=== PATIENT | male | born 1945 | race Caucasian/White ===

== ENCOUNTER → 2021-04-22 09:24 | Outpatient (CLI) | payer MEDICARE, SELFPAY ==
--- NOTE | ~2021-04-22 | MR_ITS ---
EXAMINATION: MR shoulder LT wo con DATE: 04/22/2021 10:45 INDICATION: Left shoulder pain TECHNIQUE: Magnetic resonance imaging (MRI) of the left shoulder was performed without intravenous co ntrast. Sequences included axial PD-weighted FS FSE, coronal oblique PD-weighted FS FSE, coronal obli que T2-weighted FS FSE, sagittal PD-weighted FS FSE, and sagittal T1-weighted SE. COMPARISON: Left shoulder radiographs dated 04/13/2021 FINDINGS: Coracoacromial arch: The acromion undersurface is minimally curved in morphology (type I-II). The coracoacromial ligament is normal. Mild to moderate acromioclavicular osteoarthritis with tiny degenerative subchondral cysts and small inferiorly directed osteophyte at the lateral head of the clavicle. Rotator cuff: Mild supraspinatus and infraspinatus tendinopathy. There is attenuation of the distal 2 cm the supras pinatus tendon with partial-thickness articular sided tear involving approximately one third to one h miladis of the tendon thickness. There is also mild bursal sided fraying along both supraspinatus and inf raspinatus tendons. There appears to be a small full-thickness component to the tears measuring 3 mm AP, 8 mm medial to lateral along the midportion of the superior facet footplate of the supraspinatus tendon. Mild subscapularis tendinopathy with partial tear beginning along the lateral rim of the infe rior aspect of the lesser tuberosity footplate and extending progressively medial and cephalad across the lesser tuberosity. The bursal most fibers of the cephalad aspect of the tendon remains intact an d contiguous with the intact transverse humeral ligament. The inferior muscular attachment of the sub scapularis also remains intact. The teres minor tendon is normal. Mild atrophy of the supraspinatus w ith concave cephalad margin of the muscle belly at the supraspinatus fossa. There is also mild to mod erate atrophy of the subscapularis muscle belly. Biceps tendon, glenoid labrum and glenohumeral cartilage: The long head of the biceps tendon is subluxed across the medial rim of the intertubercular groove an d the subscapularis tendon tear defect at the lesser tuberosity. Tendinopathy, longitudinal split tea ring of the long head biceps tendon with likely partial thickness tear at the junction of the intra-a rticular portion of the tendon is subluxed across the lesser tuberosity. Tear of the 12:00-10:30 posi tion of the posterior superior glenoid labrum Glenohumeral cartilage is normal. Fluid: Small glenohumeral joint effusion with mild synovitis at the axillary recess and with proportional sm all amount of fluid extending into the long head biceps tendon sheath at the empty intertubercular gr oove. No loose osteochondral bodies. Small amount of fluid in the subacromial/subdeltoid bursa which could be due to bursitis and/or decompression of the joint effusion through the small full-thickness rotator cuff tear. Bones: Bone alignment is normal. No fracture or pathologic marrow replacing process. IMPRESSION: 1. Mild supraspinatus and infraspinatus tendinopathy with partial-thickness articular sided supraspin atus tendon tear, more extensive shallow bursal sided fraying of both tendons and small full-thicknes s perforation at the distal supraspinatus tendon. 2. Mild tendinopathy and partial tear involving the superolateral half of the lesser tuberosity footp late. 3. Mild tendinopathy, longitudinal split tear and likely partial-thickness tear of the long head juve ps tendon which is subluxed across the subscapularis tear defect. 4. Tear of the posterior superior glenoid labrum. 5. Mild to moderate acromioclavicular osteoarthritis. Reviewed, dictated and finalized at location A.
== END ==
PROVIDERS: PCP Orthopaedic Surgery; Visit Provider Orthopaedic Surgery
DX: M75.82 Other shoulder lesions, left shoulder (principal); S46.212A Strain of muscle, fascia and tendon of other parts of biceps, left arm, initial encounter; S43.52XA Sprain of left acromioclavicular joint, initial encounter; M19.012 Primary osteoarthritis, left shoulder
CPT/HCPCS: 73221

== ENCOUNTER 2021-06-17 00:43 | Day surgery (SDC) | payer MEDICARE, SELFPAY ==
[2021-06-15 14:06] VITALS: BMI 28.0
--- NOTE | 2021-06-16 14:18 | WPDANESEPPF ---
Anes - Initial Pre Proc Eval Procedure: Operation Date: 06/17/21 07:30 Proposed Procedures p Left Arthroscopic Rotator Cuff Repair, Biceps Tenodesis Subacromial Decompression - Crispin Mejia MD Date/Time: 06/16/21 14:18 Surgeon: Crispin Mejia MD Pre Op Diagnosis: Complete Left Rotator Cuff Tear Patient Data Age: 76 Gender: M Height: 1.75 m Weight: 86.36 kg Allergies Allergy/AdvReac Type Severity Reaction Status Date / Time No Known Allergies Allergy Verified 06/17/21 06:28 Home Medications Medication Instructions Recorded Confirmed Type lisinopril 5 mg tablet 5 mg PO DAILY 03/01/21 06/17/21 History aspirin 81 mg PO DAILY 06/15/21 06/17/21 History Patient hx anesthesia problems: post op nausea/vomiting (only with cataract surgery) Family hx anesthesia problems: none Results Review: All pre-operative results and documents have been reviewed as part of the pre-operative evaluation. FOR[facility]LY [facility] Past Medical History Medical History (Updated 06/16/21 @ 14:19 by Glen Faria DO) Essential hypertension PONV (postoperative nausea and vomiting) Surgical History Surgical History History of appendectomy (~1964) History of cataract extraction (~2003) History of right knee surgery (~1969) Social History Social History Smoking status: Never smoker Second hand tobacco smoke exposure: No Alcohol intake: never Substance use: never Substance use type: does not use Living arrangements: with family Spiritual care concerns: No Anes - Eval Final PreProcedure Day of Procedure 06/16/21 14:18 Patient weight: overweight Heart: regular rate and rhythm Lungs: clear to auscultation and normal air movement Airway: Mallampati scale class II Neurological: alert and oriented Last oral intake: >/= 8 hours ASA classification: II Emergent: no Anesthetic plan: proceed Anesthesia type and monitoring: general ETT and standard monitoring Results Review: All pre-operative results and documents have been reviewed as part of the pre-operative evaluation. Informed Consent: The patient's anesthetic plan and its attendant risks and benefits were discussed with the patient/family/POA. Questions were solicited and answers provided to the satisfaction of the patient/family/POA.
--- NOTE | 2021-06-16 14:21 | WPDANESPNB ---
Anes - Peripheral Nerve Block Date/Time: 06/16/21 14:21 I have discussed with the patient/family/POA the placement of a peripheral nerve block for post-operative pain management, including associated risks, benefits, complications, and side effects. Alternative methods of post-operative analgesia were detailed. Questions were solicited and answers provided to the satisfaction of the patient/family/POA. Time-Out: A pre-procedural Time-Out was completed immediately before starting the procedure and confirmed: Patient Identification, Site, Procedure, Patient Position and the Availability of Requisite Equipment. Clinical Indications: Acute post-operative pain management requested by the operative surgeon. Nerve Block Insertion Note Anes-nerve block: interscalene Patient position: supine Skin prep: chlorhexidine Needle: 22 gauge, stimulating, insulated echogenic needle. Needle length: 50 mm Technique: ultrasound Injectate: bupivacaine 0.5% with epi 5 mcg/ml (30cc- no epi) Observations: tolerated well Complications: none
[2021-06-17] VITALS (8 sets, daily range): BP systolic 127–153; BP diastolic 65–83; PULSE 66–80; RESP 13–18; TEMP 36.1–36.2; O2SAT 96–100
--- NOTE | 2021-06-17 05:55 | ECG_ITS ---
Measurements Intervals [place] Rate: 59 P: -19 OR: 170 QRS: -13 QRSD: 110 T: 30 QT: 422 QTc: 420 Interpretive Statements SINUS BRADYCARDIA VOLTAGE CRITERIA FOR LVH BORDERLINE ECG Electronically Signed On 06-17-2021 8:16:59 CDT by Alexys Abbasi D.O.
[2021-06-17] MEDS: ACETAMINOPHEN 500 MG TABLET 1000 MG PO (06:37)
--- NOTE | 2021-06-17 06:38 | WPDANESPNB ---
Anes - Peripheral Nerve Block Date/Time: 06/17/21 06:38 I have discussed with the patient/family/POA the placement of a peripheral nerve block for post-operative pain management, including associated risks, benefits, complications, and side effects. Alternative methods of post-operative analgesia were detailed. Questions were solicited and answers provided to the satisfaction of the patient/family/POA. Time-Out: A pre-procedural Time-Out was completed immediately before starting the procedure and confirmed: Patient Identification, Site, Procedure, Patient Position and the Availability of Requisite Equipment. Clinical Indications: Acute post-operative pain management requested by the operative surgeon. Nerve Block Insertion Note Anes-nerve block: interscalene left Patient position: supine Skin prep: chlorhexidine Needle: 22 gauge, stimulating, insulated echogenic needle. Needle length: 50 mm Technique: ultrasound Injectate: bupivacaine 0.5% with epi 5 mcg/ml (30cc- no epi) Observations: tolerated well Complications: none Procedure start time:: 716 Procedure end time:: 720
[2021-06-17] MEDS: LACTATED RINGERS 1,000 ML 30 ML IV CONT ×2 (06:46→10:07)
[2021-06-17] MEDS: KETOROLAC 15 MG/ML VIAL (*BKC) IV PUSH (06:47)
--- NOTE | 2021-06-17 07:14 | WPDHPUPDATE1 ---
History and Physical Update Update Date/Time: 06/17/21 07:14 History and Physical has been reviewed, including an updated exam of the patient. There are NO changes in the patient's condition. Risks, benefits, and alternatives have been discussed and questions answered. Patient agrees to proceed with procedure.
[2021-06-17] MEDS: ceFAZolin 2 GM/D5W 50 ML 2 GM/50 ML BAG IVPB (07:29)
[2021-06-17] MEDS: oxyCODONE HCL (*CRX) 5 MG TAB IR PO (11:59)
--- NOTE | 2021-06-17 12:48 | P.OP_ITS ---
Procedure Note - Detailed Date of Procedure 06/17/21 Pre-op Diagnosis Complete Left Rotator Cuff Tear Post-op Diagnosis other (1. Left rotator cuff tear 2. Biceps tendinosis 3. Subacromial impingement) Procedure Performed 1. Arthroscopic rotator cuff repair 2. Arthroscopic subacromial decompression 3. Arthroscopic biceps tenodesis Surgeon Crispin Mejia MD Plant Operator Helper Mariza Chadwick PA-C Anesthesia general and regional ( interscalene block) Findings Large supraspinatus tear with articular degeneration. Upper partial thickness subscapularis tear. Extensive tendinoisis and flatening of the biceps tendon. Repair of subscapularis and biceps tenodesis with suture anchor. 2 bone tunnel repair of the supraspinatus. Description of Procedure Preoperative antibiotics were given. An interscalene block was administered in the preoperative area. The patient was bought brought to the operating room. A general anesthetic was administered. The patient was carefully positioned in the beach chair position. The head and neck were carefully positioned. The non operative extremity was also carefully positioned. The shoulder was prepped and draped in the usual sterile fashion. Examination was performed. Standard posterior and anterior arthroscopic portals were established. Inflow achieved with the arthroscopic pump using saline and epinephrine. The glenohumeral joint was carefully inspected. Extensive tearing of the biceps and superior labral area was immediately noted. Also full-thickness tear of the supraspinatus with mild retraction and significant partial-thickness delamination of the undersurface of the cuff. Otherwise the tissue was of reasonable quality. The biceps was very flattened. It was tagged and released for tenodesis. The subscapularis was partially torn. There was a comma sign with continuity of the rotator cuff cable. Reduction of the upper subscapularis improve the anatomy of the cable and the supraspinatus tear became less retracted. An Arthrex knotless anchor was used to tie a locking loop suture from the subscapularis and the biceps at the upper lateral lesser tuberosity. Repair appeared quite anatomic at the subscapularis and the biceps was nicely tenodesed. Of note, minimal superior chondromalacia of the humeral head was noted. The glenohumeral cartilage was otherwise normal. Attention was turned to the subacromial space. The bursa was thickened. A complete bursectomy was performed. The rotator cuff and footprint were lightly debrided. A modest acromioplasty was performed. The tear configuration was carefully assessed. At this point, 2 tunnels were created at the rotator cuff. The ArthroTunneler technique was utilized. Three sutures were passed through each tunnel. All sutures were then passed through the cuff tissue. The sutures were tied art hroscopically with a rip stop configuration. The arthroscopic instruments were removed. The wounds were closed with 3-0 Monocryl subcuticular suture and steri strips. There were no complications. A sling was applied and the patient brought to the recovery room. Physician radiology practitioner assistant, Mariza Chadwick PA-C, required for surgery; including patient positioning, draping, arthroscopic camera operation, maintaining instrument position, suture retrieval, wound closure, and dressing and sling placement. Implants Arthrex SwiveLock anchor. Multiple suture tapes. Estimated Blood Loss -10.0 Pathology none sent Complications No immediate complications Condition stable Disposition PACU
== END 2021-06-17 12:40 | disposition home or self-care (01) ==
PROVIDERS: PCP Emergency Medicine; Visit Provider Orthopaedic Surgery
PROC: (CPT 29805; principal; 2021-06-17 07:30)
DX: M75.122 Complete rotator cuff tear or rupture of left shoulder, not specified as traumatic (principal); M67.88 Other specified disorders of synovium and tendon, other site; M75.42 Impingement syndrome of left shoulder; G89.18 Other acute postprocedural pain; I10 Essential (primary) hypertension; E66.3 Overweight; Z68.28 Body mass index [BMI] 28.0-28.9, adult
CPT/HCPCS: 29827; 29828; 29826; 64415; 93005; A4565; A9270; J0330; J0690; J1100; J1885; J2250; J2370; J2405; J2704; J3010; J7120

== ENCOUNTER 2024-12-29 13:17 | Outpatient (CLI) | payer MEDICARE, SELFPAY ==
--- NOTE | ~2024-12-29 | MR_ITS ---
EXAMINATION: MR shoulder RT wo con DATE: 12/29/2024 13:57 INDICATION: M25.811 - Other specified joint disorders, right shoulder . TECHNIQUE: Magnetic resonance imaging (MRI) of the right shoulder was performed without intravenous c ontrast. Sequences included axial PD-weighted FS FSE, coronal oblique PD-weighted FS FSE and T2-weigh michelle FS FSE, and sagittal oblique T2-weighted FS FSE and T1-weighted FSE. COMPARISON: None. FINDINGS: Coracoacromial arch: Mild lateral downsloping of the type I acromion. Mild subacromial narrowing. No subcoracoid narrowing . Mild acromial tip enthesopathy. Moderate inferior osteophytosis off the AC joint. Rotator cuff: 6 mm full-thickness superior cuff tear, predominantly involving fibers of the supraspinatus, no signi ficant retraction. Mild supraspinatus atrophy. Abnormal T2 hyperintensity within and deep to the ante rior fibers of the infraspinatus muscle along its length. Mild thickening and signal abnormality in t he distal aspect of the subscapularis tendon. A small slip of linear abnormal signal is noted in a po rtion of the upper subscapularis musculotendinous junction. Terrace minor is intact. Abnormal signal and thickening in the distal aspect of the superior cuff tendons, likely due to tendinopathy. Biceps tendon and glenoid labrum: Mild abnormal signal within the long head of biceps tendon. Degenerative changes in the glenoid labru m without tear. Fluid: Mild subacromial/subdeltoid and glenohumeral joint fluid. Bones/cartilage: Moderate degenerative change at the AC joint. Mild thickening of the inferior capsule. Mild obscurati on of the subcoracoid fat. IMPRESSION: 6 mm full-thickness supraspinatus tear, with mild atrophy. Small intrasubstance tear of the subscapularis at the musculotendinous junction, and a background of tendinopathy. Abnormal T2 hyperintensity within and deep to the infraspinatus, may reflect muscle strain. Mild long head of biceps tendinopathy. Possible mild/early capsulitis. Reviewed, dictated and finalized at location K. IMPRESSION: 6 mm full-thickness supraspinatus tear, with mild atrophy. Small intrasubstance tear of the subscapularis at the musculotendinous junction , and a background of tendinopathy. Abnormal T2 hyperintensity within and deep to the infraspinatus, may reflect mu scle strain. Mild long head of biceps tendinopathy. Possible mild/early capsulitis.
== END 2024-12-29 13:18 | disposition home or self-care (01) ==
LOC: MICIMG 13:19
PROVIDERS: PCP Emergency Medicine; Visit Provider Physician Assistant Surgical
DX: M25.811 Other specified joint disorders, right shoulder (principal)
CPT/HCPCS: 73221

== ENCOUNTER 2025-05-13 10:06 | Outpatient (CLI) | payer MEDICARE, SELFPAY ==
--- OUTSIDE RECORDS SUMMARY | 2025-05-12 03:45 | XMS_ITS ---
Author Organization [facility] Address [address] [place] [address] Care Team Providers Care Disability Attorney Name Role Phone Dr. Silvia Su Primary Care Provider [phone] Allergies No Known Allergies REASON FOR VISIT discuss medications for tremors. Medications Medication SIG (Take, Route, Frequency, Duration) Notes Start Date End Date Status Rosuvastatin Calcium 20 MG Tablet 1 tablet Orally Once a day Active Baby Aspirin Active Rosuvastatin Calcium 20 MG Tablet 1 tablet Orally Once a day; Duration: 90 days 04/29/2025 Active Lisinopril 5 MG Tablet 1 tablets Orally Once a day; Duration: 90 days 04/29/2025 Active Tylenol 8 Hour 650 MG Tablet Extended Release 2 tablets as needed Orally every 8 hrs Active Lisinopril 5 MG Tablet 1 tablet Orally O nce a day 04/29/2025 Active Meloxicam 15 MG Tablet 1 tablet Orally O nce a day; Duration: 30 days 04/29/2025 Active Propranolol HCl 20 MG Tablet 1 tablet on an empty stomach Orally every 12 hrs; Duration: 30 days 05/12/2025 Active Social History Tobacco Use: Social History Observation Description Date Details (start date - stop date) Never Smoker NA - NA Social History Household: Social Info Question Answer Notes Household Marital status: Tobacco Use: Social Info Question Answer Notes Tobacco Control (Standard) Tobacco use: Nonsmoker Additional Details Category Social Info Options Details Drug/Alcohol: Do you drink alcohol? No Problems Problem Type SNOMED Code ICD Code Onset Dates Problem Status W/U Status Risk Notes Problem Chronic kidney disease stage 2 (110862700) Chronic kidney disease, stage 2, mildly decreased GFR (N18.2) Active confirmed Problem Tremor (01515899) Tremor (R25.1) Active confirmed Vital Signs Temperature 97.4 degrees Fahrenheit 05/12/20 25 Blood pressure systolic 112 mm Hg 05/12/20 25 Blood pressure diastolic 68 mm Hg 025 Heart Rate 76 /min 05/12/2025 Respiratory Rate 16 /min 05/12/2025 Height 70 in 05/12/2025 Weight 199 lbs 05/12/2025 BMI 28.55 kg/m2 05/12/2025 Oximetry 95 % 05/12/2025 Height-cm 177.8 cm 05/12/2025 Weight-kg 90.27 kg 05/12/2025 Encounters Encounter Location Date Provider Diagnosis [address] [address] 05/12/2025 Dr. Silvia Su Tremor R25.1 ; Nummular eczema L30.0 and CKD (chronic kidney disease) stage 2, GFR 60-89 ml/min N18.2 Assessments Encounter Date Diagnosis (ICD Code) Assessment Notes Treatment Notes Treatment Clinical Notes Section Notes 05/12/2025 Tremor (ICD-10 - R25.1) Essential tremor:- Essential tremor, no contraindications to beta mariaelena therapy. Propranolol selected as initial treatment due to favorable side effect profile.- Prescribed propranolol, to be initiated after shoulder surgery on May 25, 2025. Start at low dose, titrate as needed based on response. Follow-up scheduled for July 2025 to assess efficacy and tolerability. Advised to contact sooner if significant side effects occur.- Risks and side effects: Discussed possible side effects including exercise intolerance and fatigue due to heart rate reduction. Patient consented to plan after discussion of risks. 05/12/2025 Nummular eczema (ICD-10 - L30.0) Nummular eczema vs. tinea (ringworm) on lower extremity: - Dry, non-pruritic patch on lower extremity consistent with nummular eczema; tinea corporis considered in differential diagnosis. - Recommended hreq-zgh-jjoaayx hydrocortisone 1% cream, apply twice daily and keep area moisturized. If no improvement or lesion enlarges, consider escalation to stronger topical steroid or topical antifungal. Monitor for new lesions or pruritus. 05/12/2025 CKD (chronic kidney disease) stage 2, GFR 60-89 ml/min (ICD-10 - N18.2) Chronic kidney disease, mild: - Mild chronic kidney disease, stable GFR (75-76). No acute intervention required. Meloxicam identified as possible contributor to renal impairment. - Plan to discontinue meloxicam after shoulder surgery. Will monitor kidney function. Urine microalbumin test deferred to next visit in July 2025. Advised to maintain blood pressure and blood glucose control. [facility]. Plan Of Treatment Medication Medication Name Sig Start Date Stop Date Notes Propranolol HCl 20 MG Tablet 1 tablet on an empty stomach Orally every 12 hrs; Duration: 30 days 05/12/2025 Treatment Notes Assessment Notes Tremor Essential tremor:- E ssential tremor, no contraindications to beta mariaelena therapy. Propranolol selected as initial treatment due to favorable side effect profile.- Prescribed propranolol, to be initiated after shoulder surgery on May 25, 2025. Start at low dose, titrate as needed based on response. Follow-up scheduled for July 2025 to assess efficacy and tolerability. Advised to contact sooner if significant side effects occur.- Risks and side effects: Discussed possible side effects including exercise intolerance and fatigue due to heart rate reduction. Patient consented to plan after discussion of risks. Nummular eczema Nummular eczema vs. tinea (ringworm) on lower extremity: - Dry, non-pruritic patch on lower extremity consistent with nummular eczema; tinea corporis considered in differential diagnosis. - Recommended fthw-ubs-ihhsipq hydrocortisone 1% cream, apply twice daily and keep area moisturized. If no improvement or lesion enlarges, consider escalation to stronger topical steroid or topical antifungal. Monitor for new lesions or pruritus. CKD (chronic kidney disease) stage 2, GFR 60-89 ml/min Chronic kidney disease, mild: - Mild chronic kidney disease, stable GFR (75-76). No acute intervention required. Meloxicam identified as possible contributor to renal impairment. - Plan to discontinue meloxicam after shoulder surgery. Will monitor kidney function. Urine microalbumin test deferred to next visit in July 2025. Advised to maintain blood pressure and blood glucose control. Will review results from [facility]. Next Appt Details Follow Up: 3 Months, Reason: Provider Name:Dr. iSlvia Hair, 08/05/2025 08:45:00 AM, [address] [place], [address], [phone] History and Physical Notes * HPI (History of Present Illness) Category Sub-Category Detail Notes Category Not es HPI Patient is a 76 year old male with a PMhx of HTN, HLD presenting to the clinic to discuss tremors. He reports hand tremors that have been present for at least 3 years, previously evaluated for Parkinson's due to Agent Newberry exposure in [place]; Parkinson's was ruled out. Underwent EMG and nerve testing, which was negative. Declines any brain MRI done at that time. He was diagnosed with essential tremor. Tremor occurs with action, such as picking up a glass, eating, and playing golf, but resolves once movement begins. No tremor at rest. No family history of Parkinson's, essential tremor. Patient is interested in starting treatment but expresses concern about potential drowsiness from medication. Patient is scheduled for shoulder arthroplasty on 05/[address] Gates. He would like to wait to start the new medication until that time. Denies history of heart rate issues or congestive heart failure. Remains physically active, including mowing the yard. Describes a skin lesion on the leg present for approximately one month, not itchy, not growing. Has used medicated salve on the lesion without improvement. Expresses concern about kidney function after being informed by nurse about GFR results, with values of 76 in January and 75 on recent labs. Uses meloxicam and intends to discontinue after shoulder replacement surgery. Examination Category Sub-Category Detail Notes Category Not es General Examination I have reviewed vital signs. Constitution: Awake and alert. No acute distress. Well nourished HEENT: Normocephalic and atraumatic. Conjunctivae clear. EOM intact. PERRLA. Cardiac: Regular rate and rhythm. No murmurs, rubs, or gallops. Respiratory: Lungs clear to auscultation bilaterally. No rales, rhonchi, or wheezes. No signs of respiratory distress. Abdominal: Abdomen is soft and non-tender without distention. No rebound or guarding. Bowel sounds are present and normoactive. Neurologic Exam: Mental status: Patient is alert and oriented to person, place, and time. Speech is clear. No focal deficits. Cranial Nerves: grossly intact. Motor: Good muscle tone. No tremor at rest, tremor with purposeful movements. SKin: there is a circular, erythematous, scaly lesion to the posterior right foot over the Achilles insertion point. No drainage, non-tender. Psychiatric: appropriate mood and affect. Progress Notes * Ananth CARLINDOB:1945 ( 79 yo M)Acc No.[id number]:05/12/2025 Patient: Ananth Zee Provider: Bonny Su MD :1945 A ge:79 Y S ex:Male Date:05/12/2025 Phone: Address:[address] [place], [place] [id number] Subjective: * Chief Complaints: * D iscuss medications for tremors. * HPI: H PI: Patient is a 76 year old male with a PMhx of HTN, HLD p resenting to the clinic to discuss tremors. He reports hand tremors that have been present for at least 3 years, previously evaluated for Parkinson's due to Agent [place] exposure in [place]; Parkinson's was ruled out. Underwent EMG and nerve testing, which was negative. D eclines any brain MRI done at that time. He was diagnosed with essential tremor. T remor occurs with action, such as picking up a glass, eating, and playing golf, but resolves once movement begins. No tremor at rest. No family history of Parkinson's, essential tremor. Patient is interested in starting treatment but expresses concern about potential drowsiness from medication. Patient is scheduled for shoulder arthroplasty on 05/[address] Gates. He would like to wait to start the new medication until that time. D enies history of heart rate issues or congestive heart failure. Remains physically active, including mowing the yard. Describes a skin lesion on the leg present for approximately one month, not itchy, not growing. Has used medicated salve on the lesion without improvement. Expresses concern about kidney function after being informed by nurse about GFR results, with values of 76 in January and 75 on recent labs. Uses meloxicam and intends to discontinue after shoulder replacement surgery. * ROS: S ee HPI. * Surgical History: appendectomy 03/1965 right knee surgery 10/1969 cataract surgery - both eyes 2002 left rotator cuff 05/2021 Surgical History verified. * Family History: M other: heart issues, cancer. 2 son(s) . . F amily History Verified.. * Social History: T obacco Use: T obacco Control (Standard) T obacco use: N onsmoker D rug/Alcohol: D o you drink alcohol?: No. H ousehold: H ousehold M arital status: m arried S ocial History Verified. * Medications: T akingTylenol 8 Hour 650 MG Tablet Extended Release 2 tablets as needed Orally every 8 hrs Baby Aspirin Rosuvastatin Calcium 20 MG Tablet 1 tablet Orally Once a day Lisinopril 5 MG Tablet 1 tablet Orally Once a day Meloxicam 15 MG Tablet 1 tablet Orally Once a day Rosuvastatin Calcium 20 MG Tablet 1 tablet Orally Once a day Lisinopril 5 MG Tablet 1 tablets Orally Once a day Taking Tylenol 8 Hour 650 MG Tablet Extended Release 2 tablets as needed Orally every 8 hrs Taking Baby Aspirin Taking Rosuvastatin Calcium 20 MG Tablet 1 tablet Orally Once a day Taking Lisinopril 5 MG Tablet 1 tablet Orally Once a day Taking Meloxicam 15 MG Tablet 1 tablet Orally Once a day Taking Rosuvastatin Calcium 20 MG Tablet 1 tablet Orally Once a day Taking Lisinopril 5 MG Tablet 1 tablets Orally Once a day DiscontinuedMeloxicam 15 MG Tablet 1 tablet Orally Once a day Medication List reviewed and reconciled with the patientDiscontinued Meloxicam 15 MG Tablet 1 tablet Orally Once a day Medication List reviewed and reconciled with the patient * Allergies: N .K.D.A.yesAllergies Verified. Objective: * Vitals: B P: 112/68 mm Hg, HR: 76 /min, RR: 16 /min, Temp: 97.4 F, Oxygen sat %: 95 %, Ht: 70 in, Wt: 199 lbs, Wt-k.27 kg, Ht-cm: 177.8 cm, BMI: 28.55 Index, Body Surface Area: 2.11, Weight change: -1 lbs. * P ast Orders: L ab:Lipid Panel {Chol, Trig, HDL, LDL} (Order Date - 04/29/2025) (Collection Date & Time - 05/01/2025 08:31 AM) Value Reference Range Cholesterol Total 133 <=199 - mg/dL HDL 50 23-92 - mg/dL Non HDL Cholesterol 83 <=130 - mg/dL Chol/HDL 3 0-5 - LDL (Calc) 66 <=100 - mg/dL Triglycerides 83 0-149 - mg/dL L ab:Comprehensive Metabolic Panel (Order Date - 04/29/2025) (Collection Date & Time - 05/01/2025 08:31 AM) Value Reference Range Glucose 111 H 74-109 - mg/dL BUN 25 7-25 - mg/dL Creatinine 1.02 0.70-1.30 - mg/dL eGFR CKD EPI 75 L >=90 - mL/min/1.73 m 2 Calcium 10.1 8.6-10.3 - mg/dL Sodium 141 136-145 - mmol/L Potassium 4.6 3.5-5.1 - mmol/L Chloride 106 98-107 - mmol/L CO2 30 21-31 - mmol/L Anion Gap 4.7 <=16.0 - mmol/L Alk Phos 75 34-104 - unit/L Bilirubin Total 1.0 0.3-1.0 - mg/dL Albumin 4.5 3.5-5.2 - g/dL Protein Total 6.5 6.4-8.9 - g/dL Albumin/Globulin Ratio 2.2 1.1-2.5 - ALT 34 7-52 - unit/L AST 27 13-39 - unit/L L ab:CBC w Auto Diff (Order Date - 04/29/2025) (Collection Date & Time - 05/01/2025 08:31 AM) Value Reference Range WBC 5.7 4.0-11.7 - K/mcL RBC 4.79 4.28-5.56 - x10*6/mc L Hgb 15.3 13.0-17.0 - g/dL Hct 45.2 38.1-48.9 - % MCV 94.4 83.4-98.1 - fL MCH 32.0 27.0-34.2 - pg MCHC 33.9 31.8-35.3 - g/dL RDW 13.4 12.0-16.4 - % Platelets 178 149-393 - K/mcL MPV 8.1 7.0-11.0 - fL Neutro Auto 65.2 45.3-79.0 - % Lymph Auto 23.9 11.8-45.9 - % Hamblen Auto 9.5 4.4-12.0 - % Eosinophil Auto 1.0 0.0-6.3 - % Basophil Auto 0.4 0.2-1.6 - % Neutro Absolute 3.7 2.4-8.4 - x10*3/mcL Lymph Absolute 1.4 0.8-3.7 - x10*3/mcL Hamblen Absolute 0.5 0.3-1.1 - x10*3/mcL Eos Absolute 0.1 0.0-0.5 - x10*3/mcL L ab:Hemoglobin A1c {Glycosylated} (Order Date - 04/29/2025) (Collection Date & Time - 05/01/2025 08:31 AM) Value Reference Range Hemoglobin A1c 5.5 <=6.4 - % eAvg Glucose 111 <=117 - mg/dL L ab:TSH Reflex Free T4 (Order Date - 04/29/2025) (Collection Date & Time - 05/01/2025 08:31 AM) Value Reference Range TSH. 2.75 0.45-5.33 - mcIU/mL * Examination: G eneral Examination: I have reviewed vital signs. Constitution: Awake and alert. No acute distress. Well nourished HEENT: Normocephalic and atraumatic. Conjunctivae clear. EOM intact. PERRLA. Cardiac: Regular rate and rhythm. No murmurs, rubs, or gallops. Respiratory: Lungs clear to auscultation bilaterally. No rales, rhonchi, or wheezes. No signs of respiratory distress. Abdominal: Abdomen is soft and non-tender without distention. No rebound or guarding. Bowel sounds are present and normoactive. Neurologic Exam: M ental status: Patient is alert and oriented to person, place, and time. Speech is clear. No focal deficits. C ranial Nerves: grossly intact. Motor: Good muscle tone. No tremor at rest, tremor with purposeful movements. SKin: there is a circular, erythematous, scaly lesion to the posterior right foot over the Achilles insertion point. No drainage, non-tender. Psychiatric: appropriate mood and affect. Assessment: * Assessment: 1. T remor - R25.1 (Primary) 2 . N ummular eczema - L30.0 3 . C KD (chronic kidney disease) stage 2, GFR 60-89 ml/min - N18.2 Plan: * Treatment: 2. N ummular eczema Notes: Nummular eczema vs. tinea (ringworm) on lower extremity: - Dry, non-pruritic patch on lower extremity consistent with nummular eczema; tinea corporis considered in differential diagnosis. - Recommended miav-ehv-uqkeeob hydrocortisone 1% cream, apply twice daily and keep area moisturized. If no improvement or lesion enlarges, consider escalation to stronger topical steroid or topical antifungal. Monitor for new lesions or pruritus. 3. C KD (chronic kidney disease) stage 2, GFR 60-89 ml/min Notes: Chronic kidney disease, mild: - Mild chronic kidney disease, stable GFR (75-76). No acute intervention required. Meloxicam identified as possible contributor to renal impairment. - Plan to discontinue meloxicam after shoulder surgery. Will monitor kidney function. Urine microalbumin test deferred to next visit in July 2025. Advised to maintain blood pressure and blood glucose control. Will [facility] results [facility]. * Follow Up: 3 Months Billing Information: * Visit Code: [id number] OFFICE VISIT MODERATE. * Procedure Codes: * Sign off status: Completed true * Provider: Bonny Su MD Date: 05/12/2025 Generated for Delaney pinto/Sandra/Mauraitting on: 05/13/2025 11:01 AM CDT
--- NOTE | ~2025-05-13 | XR_ITS ---
EXAMINATION: XR shoulder RT min 2V, 05/13/2025 10:18 CDT HISTORY: M75.121 - Complete rotator cuff tear or rupture of right ... COMPARISON: No comparisons available. Findings: No acute fracture or malalignment. No significant degenerative changes. Soft tissues unremarkable. Impression: No acute fracture or malalignment. Reviewed, dictated and finalized at location A. Impression: No acute fracture or malalignment.
--- OUTSIDE RECORDS SUMMARY | 2025-05-13 11:01 | XMS_ITS | Clinical Summary ---
Author Organization [facility] Address [address] [place] [id number] Care Team Providers Care Roll Contour Grinder Name Role Phone Unavailable Primary Care Provider Unavailabl e Social History Tobacco Use Types Packs/Day Years Used Date Smoking Tobacco: Never Assessed Sex and Gender Information Value Date Recorded Sex Assigned at Not on file Legal Sex Male 10:44 AM CDT Gender Identity Not on file Sexual Orientation Not on file Plan of Treatment Upcoming Encounters Date Type Department Care Team ([facility] Contact Info) Description 06/09/2025 11:00 AM CDT Office Visit [facility] Special[facility] [address] [place] [address] Dylan Martinez, [place], [facility] [address] [place] [address] Health Maintenance Due Date Last Done Comments Hepatitis C Screening ages 1 8 to 79 once 1945 YEARLY WELLNESS EXAM 1949 DEPRESSION SCREENING 1958 ADULT TETANUS 1965 LIPID TESTING 1981 Pneumococcal Vaccine: 50 and over (1 of 1 - PCV) 1996 Zoster Vaccine (Recombinant Vaccine) (1 of 2) 1996 Fall Risk Assessment 2011 RSV Vaccines (1 - 1-dose 75+ series) 2021 Influenza Vaccine 03/20/2025 COVID-19 Immunization (1 - 2 season) 2025 HEPATITIS A VACCINES Aged Out No long er eligible based on patient's age to complete this topic HEPATITIS B VACCINES Aged Out No long er eligible based on patient's age to complete this topic HIB VACCINES Aged Out No longer eligi ble based on patient's age to complete this topic HPV VACCINES Aged Out No longer eligi ble based on patient's age to complete this topic IPV VACCINES Aged Out No longer eligi ble based on patient's age to complete this topic MENINGOCOCCAL VACCINE Aged Out No starr john eligible based on patient's age to complete this topic Meningococcal B Vaccine Aged Out No l onger eligible based on patient's age to complete this topic ROTAVIRUS VACCINES Aged Out No longer eligible based on patient's age to complete this topic Insurance [facility] [employer] [employer]
--- OUTSIDE RECORDS SUMMARY | 2025-05-13 11:01 | XMS_ITS | Clinical Summary ---
Author Organization [facility] Address [address] [place] [address] Care Team Providers Care Reliability Specialist Name Role Phone Referring, Unknown MD Primary Care Provider Unav ailable Allergies No known active allergies Medications lisinopriL (PRINIVIL,ZESTR IL) 5 mg tablet Take 1 tablet (5 mg total) by mouth daily Active aspirin 81 mg enteric coated tablet Take 1 tablet (81 mg total) by mouth daily Active propranoloL (INDERAL) 20 mg tabletIndicatio ns:Essential Tremor Take 1 tablet (20 mg total) by mouth 2 (two) times a day 60 tablet 5 3 Active Additional Information Patient not taking.Reported on 03/20/2023 cyanocobalamin (Vitamin B-12) 1,000 mcg tabletIndicatio ns:Prevention of Vitamin B12 Deficiency Take 1 tablet (1,000 mcg total) by mouth daily Active gabapentin (NEURONTIN) 300 mg capsuleIndicati ons:Neuropathic Pain Take 1 capsule (300 mg total) by mouth nightly 30 capsule 2 3 Active Active Problems No known active problems Social History Tobacco Use Types Packs/Day Years Used Date Smoking Tobacco: Never Passive Smoke Exposure: Never Smokeless Tobacco: Never Tobacco Cessation:Counseling Given: Not Answered Personal Safety Answer Date Recorded Getting School Help Needed Not on file 08/24 Sex and Gender Information Value Date Recorded Sex Assigned at Not on file Legal Sex Male 10:34 AM CDT Gender Identity Male 03/16/2023 6:59 AM CDT Sexual Orientation Not on file Obstetrics History Last Filed Vital Signs Vital Sign Reading Time Taken Comments Blood Pressure 130/70 03/20/2023 3:34 PM CDT Pulse 74 02/06/2023 10:03 AM CDT Temperature 36.3 C (97.3 F) 02/06/2023 10:03 AM CDT Respiratory Rate 20 02/06/2023 10:03 AM CDT Oxygen Saturation 99% 02/06/2023 10:03 AM CDT Inhaled Oxygen Concentration - - Weight 87.5 kg (193 lb) 03/20/2023 3:34 PM CDT Height 177.8 cm (5' 10) 03/20/2023 3:34 PM CDT Body Mass Index 27.69 03/20/2023 3:34 PM CDT Plan of Treatment Health Maintenance Due Date Last Done Comments Depression Screening 1945 Fall Risk Assessment 1945 Hepatitis C Screening 1945 DTaP/Tdap/Td Vaccine (1 - Tdap) 1957 Hepatitis B Screening 1964 Pneumococcal vaccine 65+ (1 of 1 - PCV) 1996 Zoster Vaccine (1 of 2) 1996 Well Visit 65+ 2011 Covid-19 Vaccine (5 - 2024-2 6 season) 2025 04/25/2022, 08/01/2021, 10/23/2020, Additional history exists Influenza Vaccine (#1) 2025 , 05/26/2021, 06/07/2020, Additional history exists Insurance [facility] [employer] Care Teams Reliability Specialist Relationship Specialty Start Date End Date Referring, Unknown, PCP - General Pediatrics 12/26/22
--- OUTSIDE RECORDS SUMMARY | 2025-05-13 11:02 | XMS_ITS | Patient Health Record ---
Author Organization [facility] Address [address] [place] [address] Care Team Providers Care Slp Teacher Name Role Phone Dr. Silvia Su Primary Care Provider [phone] Allergies No Known Allergies Results Component Value Reference Range Flag Notes Lipid Panel {Chol, Trig, HDL , LDL} Reviewed date:05/01/2025 04:27:00 PM Interpretation: Performing Lab: Notes/Report: Test Performed by: [address] [address] Water Server: Bao Muñiz DO Cholesterol Total 133 <=199 mg/dL Triglycerides 83 0-149 mg/dL Triglyceride Reference Ranges: <150 mg/dL Normal 150 - 199 mg/dL Borderline High 200 - 499 mg/dL High >=500 mg/dL Very High LDL 66 <=100 mg/dL LDL Optimal: <100 Near or above optimal: 100-129 Borderline high: 130-159 High: 160-189 Very high: >=190 Coronary heart disease risk factors should be considered when determining LDL goals. Please refer to ATPIII guidelines for further information. If LDL is not calculated, please call the lab to add on the direct LDL methodology, if desired. HDL 50 23-92 mg/dL Non HDL Cholesterol 83 <=130 mg/dL Chol/HDL 3 0-5 Comprehensive Metabolic Pane l Reviewed date:05/01/2025 04:27:00 PM Interpretation: Performing Lab: Notes/Report: Test Performed by: [address] [address] Water Server: Bao Muñiz DO Glucose Lvl 111 74-109 mg/dL H ADA risk stratification for diabetes <100 mg/dL = Normal 100-125 mg/dL = Increased risk for future diabetes >=126 mg/dL = Diabetes, if on more than one testing occasion BUN 25 7-25 mg/dL Creatinine Lvl 1.02 0.70-1.30 mg/dL eGFR CKD-EPI 75 >=90 mL/min/1.73 m2 L The CKD-EPI equation is validated in individuals 18 years of age and older. It is less accurate in patients with extremes of muscle mass, restriction of dietary protein, ingestion of creatine, extra-renal metabolism of creatinine, or treatment with medications that affect renal tubular creatinine secretion. GFR Categories in Chronic Kidney Disease (CKD) GFR GFR (mL/min/1.73 Category: square meters): Interpretation: G1 90 or greater Normal or high* G2 60-89 Mild decrease* G3a 45-59 Mild to moderate decrease G3b 30-44 Moderate to severe decrease G4 15-29 Severe decrease G5 14 or less Kidney failure *In the absence of evidence of kidney damage, neither GFR category G1 nor G2 fulfill the criteria for CKD (Kidney Int Suppl 2013;3:1-150) Calcium Lvl 10.1 8.6-10.3 mg/dL Sodium Lvl 141 136-145 mmol/L Potassium Lvl 4.6 3.5-5.1 mmol/L Chloride Lvl 106 98-107 mmol/L CO2 30 21-31 mmol/L Anion Gap 4.7 <=16.0 mmol/L Alk Phos 75 34-104 unit/L Bilirubin Total 1.0 0.3-1.0 mg/dL Albumin Lvl 4.5 3.5-5.2 g/dL Protein Total 6.5 6.4-8.9 g/dL Albumin/Globulin Ratio 2.2 1.1-2.5 ALT 34 7-52 unit/L AST 27 13-39 unit/L CBC w Auto Diff Reviewed date:05/01/2025 04:27:00 PM Interpretation: Performing Lab: Notes/Report: Test Performed by: Kerry Slater [address] [address] Water Server: Bao Muñiz DO WBC 5.7 4.0-11.7 K/mcL RBC 4.79 4.28-5.56 x10*6/mcL Hgb 15.3 13.0-17.0 g/dL Hct 45.2 38.1-48.9 % MCV 94.4 83.4-98.1 fL MCH 32.0 27.0-34.2 pg MCHC 33.9 31.8-35.3 g/dL RDW 13.4 12.0-16.4 % Platelets 178 149-393 K/mcL MPV 8.1 7.0-11.0 fL Neutro Auto 65.2 45.3-79.0 % Lymph Auto 23.9 11.8-45.9 % [place] Auto 9.5 4.4-12.0 % Eosinophil Auto 1.0 0.0-6.3 % Basophil Auto 0.4 0.2-1.6 % Neutro Absolute 3.7 2.4-8.4 x10*3/mcL Lymph Absolute 1.4 0.8-3.7 x10*3/mcL [place] Absolute 0.5 0.3-1.1 x10*3/mcL Eos Absolute 0.1 0.0-0.5 x10*3/mcL Hemoglobin A1c {Glycosylated } Reviewed date:05/01/2025 04:27:00 PM Interpretation: Performing Lab: Notes/Report: Test Performed by: [place] [id number] Water Server: Bao Muñiz DO Hemoglobin A1c 5.5 <=6.4 % Hemoglobin A1C < 5.7% = Normal 5.7-6.4% = Increased risk for future diabetes >=6.5% = Diabetes eAvg Glucose 111 <=117 mg/dL eAG Reference Range <117 mg/dL = Normal 117-137 mg/dL = Increased Risk For Future Diabetes >137 mg/dL = Diabetes TSH Reflex Free T4 Reviewed date:05/01/2025 04:27:00 PM Interpretation: Performing Lab: Notes/Report: Test Performed by: [place] [address] Water Server: Bao Muñiz DO TSH. 2.75 0.45-5.33 mcIU/mL Reason For Referral No Information Medications Medication SIG (Take, Route, Frequency, Duration) Notes Start Date End Date Status Rosuvastatin Calcium 20 MG Tablet 1 tablet Orally Once a day Active Baby Aspirin Active Lisinopril 5 MG Tablet 1 tablet Orally O nce a day 04/29/2025 Active Rosuvastatin Calcium 20 MG Tablet 1 tablet Orally Once a day; Duration: 90 days 04/29/2025 Active Meloxicam 15 MG Tablet 1 tablet Orally O nce a day; Duration: 30 days 04/29/2025 Active Propranolol HCl 20 MG Tablet 1 tablet on an empty stomach Orally every 12 hrs; Duration: 30 days 05/12/2025 Active Lisinopril 5 MG Tablet 1 tablets Orally Once a day; Duration: 90 days 04/29/2025 Active Tylenol 8 Hour 650 MG Tablet Extended Release 2 tablets as needed Orally every 8 hrs Active Social History Tobacco Use: Social History [...] Problem Status W/U Status Risk Notes Problem Hyperlipidemia (72974136) Hyperlipidemia, unspecified (E78.5) Active confirmed Problem Tremor (61345692) Tremor (R25.1) Active confirm ed Problem Chronic kidney disease stage 2 (627427927) Chronic kidney disease, stage 2, mildly decreased GFR (N18.2) Active confirmed Vital Signs Heart Rate 76 /min 05/12/2025 Temperature 97.4 degrees Fahrenheit 05/12/2025 Respiratory Rate 16 /min 05/12/2025 Height-cm 177.8 cm 05/12/2025 Oximetry 95 % 05/12/2025 Blood pressure diastolic 68 mm Hg 05/12/2025 Weight-kg 90.27 kg 05/12/2025 Height 70 in 05/12/2025 Blood pressure systolic 112 mm Hg 05/12/2025 Weight 199 lbs 05/12/2025 BMI 28.55 kg/m2 05/12/2025 Encounters Encounter Location Date Provider Diagnosis [address] [address] 04/29/2025 Dr. Silvia Su Benign essential hypertension I10 ; Hyperlipidemia, unspecified E78.5 ; Tremor R25.1 ; Chronic osteoarthritis M19.90 and Encounter for adult wellness visit Z00.[address] [address] 05/12/2025 Dr. Silvia Su Tremor R25.1 ; Nummular eczema L30.0 and CKD (chronic kidney disease) stage 2, GFR 60-89 ml/min N18.[address] [address] 05/01/2025 Dr. Silvia Su Assessments Encounter Date Diagnosis (ICD Code) Assessment Notes Treatment Notes Treatment Clinical Notes Section Notes 04/29/2025 Hyperlipidemia, unspecified (ICD-10 - E78.5) Hyperlipidemia: - Ordered fasting lipid panel to assess current cholesterol levels and determine need for adjustment of rosuvastatin therapy. 04/29/2025 Benign essential hypertension (ICD-10 - I10) Hypertension: - Hypertension managed with lisinopril. Blood pressure well controlled at present. - Sent lisinopril prescription to [facility] for continuity of care. Will monitor blood pressure and adjust therapy as needed based on lab results and follow-up. 05/12/2025 Tremor (ICD-10 - R25.1) Essential tremor:- [...] corporis considered in differential diagnosis. - Recommended lxoe-lqq-yupcicf hydrocortisone 1% cream, apply twice daily and [...] [facility]. 04/29/2025 Tremor (ICD-10 - R25.1) Essential tremor:- Essential tremor reportedly diagnosed based on prior EMG. No evidence of Parkinson's disease. No family history of tremor or Parkinson's disease. No current need for medication as tremor is manageable and patient prefers to avoid sedating medications.- Ordered laboratory evaluation including TSH, electrolytes to rule out secondary causes. Will consider treatment options if tremor worsens or becomes more bothersome. Discussed option to initiate medication if symptoms progress.- Risks and side effects: Discussed risk of sedation and side effects with tremor medications. 04/29/2025 Chronic osteoarthritis (ICD-10 - M19.90) Right shoulder pain:- Prescribed meloxicam 15 mg for right shoulder pain, to be taken as previously directed. Sent prescription to [facility]. 04/29/2025 Encounter for adult wellness visit (ICD-10 - Z00.00) Use of baby aspirin and bleeding: - No indication for continued use of baby aspirin due to absence of atrial fibrillation, stroke, or myocardial infarction. Increased bleeding noted with use. - Recommended discontinuation of baby aspirin pending other screening labs, etc in the absence of other risk factors Need for routine lab work and diabetes screening: - Ordered CBC, comprehensive metabolic panel, TSH, A1c, and fasting lipid panel for baseline evaluation and diabetes screening. Advised fasting prior to lipid panel. Provided instructions for walk-in lab draw. Will review results and follow up within 7 days. Scheduled follow-up appointment for August 05, 2025 at 8:45 AM. Plan Of Treatment Next Appt Details Provider Name:Dr. Silvia Hair, 08/05/2025 08:45:00 AM, [address] [facility], [place], [address], [phone] Insurance Providers Payer Name Payer Address Payer Phone Subscriber Number Group Number Insured Name Patient Relationship to Insured Coverage Start Date Coverage End Date Aegeraldna [address] [address] [place] [address] [id number] Ananth Carlin Self - patient is the insured Medical (General) History Surgical History Surgery Date(Month/Year) appendectomy 03/1965 right knee surgery 10/1969 cataract surgery - both eyes 2002 left rotator cuff 05/2021
== END 2025-05-13 10:07 | disposition home or self-care (01) ==
PROVIDERS: Visit Provider Orthopaedic Surgery
DX: M75.121 Complete rotator cuff tear or rupture of right shoulder, not specified as traumatic (principal)
CPT/HCPCS: 73030

== ENCOUNTER 2025-05-19 07:46 | Outpatient (CLI) | payer MEDICARE, SELFPAY ==
--- OUTSIDE RECORDS SUMMARY | 2025-05-19 07:51 | XMS_ITS | Clinical Summary ---
Author Organization [facility] Address [address] [place] [address] Care Team Providers Care Piano Teacher Name Role Phone Unavailable Primary Care Provider Unavailabl e Social History Tobacco Use Types Packs/Day Years Used Date Smoking Tobacco: Never Assessed Sex and Gender Information Value Date Recorded Sex Assigned at Not on file Legal Sex Male 10:44 AM CDT Gender Identity Not on file Sexual Orientation Not on file Plan of Treatment Upcoming Encounters Date Type Department Care Team ([facility] Contact Info) Description 06/09/2025 11:00 AM CDT Office Visit [facility] Specialty [facility] ENT [address] [place] [address] Dylan Martinez, [place], [facility] [address] [place] [address] Health Maintenance Due Date Last [...]
--- OUTSIDE RECORDS SUMMARY | 2025-05-19 07:51 | XMS_ITS | Patient Health Record ---
Author Organization [facility] Address [address] [place] [address] Care Team Providers Care Petroleum Products District Supervisor Name Role Phone Dr. Silvia Su Primary Care Provider [phone] Allergies No Known Allergies Results Component Value Reference Range Flag Notes TSH Reflex Free T4 Reviewed date:05/01/2025 04:27:00 PM Interpretation: Performing Lab: Notes/Report: Test Performed by: [place] [address] Environmental Maintenance Worker: Bao Muñiz DO TSH. 2.75 0.45-5.33 mcIU/mL Hemoglobin A1c {Glycosylated } Reviewed date:05/01/2025 04:27:00 PM Interpretation: Performing Lab: Notes/Report: Test Performed by: [place] [address] Environmental Maintenance Worker: Bao Muñiz DO Hemoglobin A1c 5.5 <=6.4 % Hemoglobin A1C < 5.7% = Normal 5.7-6.4% = Increased risk for future diabetes >=6.5% = Diabetes eAvg Glucose 111 <=117 mg/dL eAG Reference Range <117 mg/dL = Normal 117-137 mg/dL = Increased Risk For Future Diabetes >137 mg/dL = Diabetes CBC w Auto Diff Reviewed date:05/01/2025 04:27:00 PM Interpretation: Performing Lab: Notes/Report: Test Performed by: [place] [id number] Environmental Maintenance Worker: Bao Muñiz DO WBC 5.7 4.0-11.7 K/mcL RBC 4.79 4.28-5.56 x10*6/mcL Hgb 15.3 13.0-17.0 g/dL Hct 45.2 38.1-48.9 % MCV 94.4 83.4-98.1 fL MCH 32.0 27.0-34.2 pg MCHC 33.9 31.8-35.3 g/dL RDW 13.4 12.0-16.4 % Platelets 178 149-393 K/mcL MPV 8.1 7.0-11.0 fL Neutro Auto 65.2 45.3-79.0 % Lymph Auto 23.9 11.8-45.9 % [place] Auto 9.5 4.4-12.0 % Eosinophil Auto 1.0 0.0-6.3 % Basophil Auto 0.4 0.2-1.6 % Neutro Absolute 3.7 2.4-8.4 x10*3/mcL Lymph Absolute 1.4 0.8-3.7 x10*3/mcL [place] Absolute 0.5 0.3-1.1 x10*3/mcL Eos Absolute 0.1 0.0-0.5 x10*3/mcL Comprehensive Metabolic Pane l Reviewed date:05/01/2025 04:27:00 PM Interpretation: Performing Lab: Notes/Report: Test Performed by: [place] [address] Environmental Maintenance Worker: Bao Muñiz DO Glucose Lvl 111 74-109 [...] 34 7-52 unit/L AST 27 13-39 unit/L Lipid Panel {Chol, Trig, HDL , LDL} Reviewed date:05/01/2025 04:27:00 PM Interpretation: Performing Lab: Notes/Report: Test Performed by: [place] [address] Environmental Maintenance Worker: Bao Muñiz DO Cholesterol Total 133 <=199 [...] Cholesterol 83 <=130 mg/dL Chol/HDL 3 0-5 Reason For Referral No Information Medications Medication [...] Status W/U Status Risk Notes Problem Hyperlipidemia (67731905) Hyperlipidemia, unspecified (E78.5) Active confirmed Problem Tremor (80482955) Tremor (R25.1) Active confirm ed Problem Chronic kidney disease stage 2 (318409890) Chronic kidney disease, stage 2, mildly decreased [...] 05/12/2025 Encounters Encounter Location Date Provider Diagnosis [address] [address] 04/29/2025 Dr. Silvia Su Benign essential hypertension I10 ; Hyperlipidemia, unspecified E78.5 ; Tremor R25.1 ; Chronic osteoarthritis M19.90 and Encounter for adult wellness visit Z00.[address] [address] 05/12/2025 Dr. Silvia Su Tremor R25.1 ; Nummular eczema L30.0 and CKD (chronic kidney disease) stage 2, GFR 60-89 ml/min N18.[address] [address] 05/01/2025 Dr. Silvia Su Assessments Encounter Date [...] corporis considered in differential diagnosis. - Recommended uiwp-iul-ojyalyf hydrocortisone 1% cream, apply twice daily and [...] Silvia Hair, 08/05/2025 08:45:00 AM, [address] [facility], [place], [address], [phone] Insurance Providers Payer Name Payer Address Payer Phone Subscriber Number Group Number Insured Name Patient Relationship to Insured Coverage Start Date Coverage End Date Aegeraldna [address] [address] [place] [address] [id number] Ananth Carlin Self - patient is the insured Medical (General) History Surgical History Surgery Date(Month/Year) appendectomy 03/1965 right knee surgery 10/1969 cataract surgery - both eyes 2002 left rotator cuff 05/2021
--- OUTSIDE RECORDS SUMMARY | 2025-05-19 07:51 | XMS_ITS | Clinical Summary ---
Author Organization [facility] Address [address] [place] [address] Care Team Providers Care Investigative Agent Name Role Phone Referring, Unknown MD Primary [...] exists Insurance [facility] [employer] Care Teams Investigative Agent Relationship Specialty Start Date End Date Referring, Unknown, PCP - General Pediatrics 12/26/22
--- NOTE | 2025-05-19 07:55 | ECG_ITS ---
Test Date: 2025-05-19 08:05:52 Measurements Intervals [place] Rate: 73 P: -35 CT: 176 QRS: -19 QRSD: 106 T: 32 QT: 395 QTc: 438 Interpretive Statements SINUS RHYTHM MODERATE VOLTAGE CRITERIA FOR LVH, CONSIDER NORMAL VARIANT [MEETS CRITERIA IN ONE OF: R(aVL), S(V1), R(V5), R(V5/V6)+S(V1)] No previous ECG available for comparison Electronically Signed On 05-19-2025 14:42:51 CDT by Whitley Del Angel M.D.
== END 2025-05-19 07:47 | disposition home or self-care (01) ==
PROVIDERS: Visit Provider Orthopaedic Surgery
DX: Z01.818 Encounter for other preprocedural examination (principal); I10 Essential (primary) hypertension
CPT/HCPCS: 93005

== ENCOUNTER 2025-05-25 01:15 | Day surgery (SDC) | payer MEDICARE, SELFPAY ==
--- NOTE | 2025-05-18 09:37 | PC.NURSE ---
[facility] has started construction of its new state of the art ER which will open Spring 2026. With this, we anticipate parking may be a challenge for some our surgical patients and families. Parking spaces are limited but are available for all Surgical, obstetrics, and ER patients sharing this lot. If you arrive and find you are having a hard time finding a parking space, please note that we understand the challenges, please drive around the hospital and park near Hospital Entrance 1. When you enter this entrance, you can ask a volunteer to direct or take you back to the surgical waiting area to check in. We appreciate everyone?s understanding of these expected challenges while we build for your future. Report to the Outpatient Waiting Room, entrance under the green pavilion located off [address], at time _10 AM on date __05/25/25 . Planned Procedure Time: _1200 NOON .? Time changes happen often and if your time is changed the preop area will call you the afternoon before. - You and your visitor will be asked to self-screen and do not enter if you have any COVID symptoms. Please call surgeon if you need to reschedule. - A mask is optional within the hospital at this time. Patients may have clear liquids (water, carbonated beverages, clear teas, apple juice) until 3 hours prior to surgery ( 9AM) with a maximum of 20 ounces. - No food from midnight until time of surgery and no smoking, or chewing tobacco (or any form of nicotine). No chewing gum, candy or mints. Take only the following medications with a SIP of water on the morning of surgery: NONE DO NOT STOP ANY OF YOUR OTHER PRESCRIPTION MEDICATIONS PRIOR TO SURGERY EXCEPT THE FOLLOWING Hold all vitamins and supplements for 3 days per anesthesiologist.LAST DOSE 05/21/25 Medications to discontinue per physician MELOXICAM HOLD 7 DAYS PRE OP PER DR PETERSON Date to take last dose____05/17/25 Please no make-up, nail estonian, hairspray, perfume, deodorant, or body powder the day of surgery.? No jewelry (including any body piercings) or valuables the day of surgery, leave them at home.? Please take a shower or bath the night before, or the morning of, surgery with an antibacterial soap.? Wear comfortable, loose fitting clothing.? Children are encouraged to wear pajamas. - Jewelry must be removed prior to entering the operating room.? Rings and piercings that are not removed may be cut off. - The hospital will not accept responsibility for valuables.? - Please leave all valuables, including medications, at home the day of surgery. If you are going home after surgery, a licensed student truck driver must drive you home.? - NO public transportation without another adult if you receive anesthesia. - We recommend that an adult stay with you for 24 hours following discharge. - We also recommend that you do not drive, make important decision, drink alcoholic beverages, or take any drugs that were not prescribed by your health care provider for at least 24 hours after your discharge time. For Pediatric surgeries, we recommend two adults accompany the child home. Follow any additional instructions given to you from your surgeon. Telephone instructions given to __WIFE LELA and asked if any additional questions and then verbalized understanding. Patient advised to call surgeon office or pre surgery nurse liaison [phone] if any additional questions.
[2025-05-18 09:50] VITALS: BMI 27.2
[2025-05-25] VITALS (9 sets, daily range): BP systolic 114–162; BP diastolic 48–70; PULSE 59–69; RESP 12–18; TEMP 36.2; O2SAT 95–100
--- OUTSIDE RECORDS SUMMARY | 2025-05-25 01:18 | XMS_ITS | Clinical Summary ---
Author Organization [facility] Address [address] [place] [address] Care Team Providers Care Structural Iron Erector Name Role Phone Referring, Unknown MD Primary [...] exists Insurance [facility] [employer] Care Teams Structural Iron Erector Relationship Specialty Start Date End Date Referring, Unknown, PCP - General Pediatrics 12/26/22
--- OUTSIDE RECORDS SUMMARY | 2025-05-25 01:18 | XMS_ITS | Clinical Summary ---
Author Organization [facility] Address [address] [place] [address] Care Team Providers Care Outsole Handler Name Role Phone Unavailable Primary Care Provider Unavailabl e Social History Tobacco Use Types Packs/Day Years Used Date Smoking Tobacco: Never Assessed Sex and Gender Information Value Date Recorded Sex Assigned at Not on file Legal Sex Male 10:44 AM CDT Gender Identity Not on file Sexual Orientation Not on file Plan of Treatment Upcoming Encounters Date Type Department Care Team ([facility] Contact Info) Description 06/09/2025 11:00 AM CDT Office Visit [facility] Specialty [facility] ENT [address] [place] [address] Dylan Martinez, [place], [facility] [address] [place] [address] Health Maintenance Due Date Last [...]
--- OUTSIDE RECORDS SUMMARY | 2025-05-25 01:18 | XMS_ITS | Clinical Summary ---
Author Organization [facility] Address [facility] [place] [address] Care Team Providers Care Laundry Pricing Clerk Name Role Phone Yury Littlejohn MD Primary Care Provider [phone] Allergies No known active allergies Medications lisinopril 5 MG tablet Take 5 mg by mouth daily. 03/05/20 21 Active nirmatrelvir & ritonavir 300/100 (PAXLOVID) 20 x 150 MG & 10 x 100MG tablet packIndications:CO VID-19 Take nirmatrelvir 150 mg tablet(s) along with ritonavir 100 mg tablet, with all tablets taken together, twice daily for 5 days. May take with or without food. Swallow tablets whole. Do not chew, break or crush.. 1 each 09/07/19 23 Active meclizine (ANTIVERT) 25 MG tablet Take 1 tablet (25 mg total) by mouth 3 (three) times daily as needed for Dizziness. 30 tablet 07/18/20 23 Active ondansetron (ZOFRAN-ODT) 4 MG disintegrating tablet Take 1 tablet (4 mg total) by mouth every 6 (six) hours as needed for Nausea. 20 tablet 07/18/20 23 Active Active Problems Problem Noted Date Diagnosed Date Hypertension, essential 08/15/2014 Hyperlipidemia 08/15/2014 Immunizations Immunization Administration Dates Next Due Fluzone High Dose - >Age 65 (Prefilled Syringe) 06/07/2020 MODERNA COVID-19 (12+) MRNA, LNP-S, PF, 100 MCG/ 0.5 ML DOSE 10/23/2020,09/25/2020 Social History Tobacco Use Types Packs/Day Years Used Date Smoking Tobacco: Never Smokeless Tobacco: Never Tobacco Cessation:Counseling Given: Not Answered PHQ-2 Answer Date Recorded PHQ-2 Score - If the patient scores above 3, please move on to questions 3-9 0 03/19/2021 Sex and Gender Information Value Date Recorded Sex Assigned at Male 09/15/2024 1:37 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 Legal Sex Male 11:34 PM CDT Gender Identity Not on file Sexual Orientation Not on file Last Filed Vital Signs Vital Sign Reading Time Taken Comments Blood Pressure 155/73 01/24/2025 11:04 AM CDT Pulse 88 01/24/2025 11:04 AM CDT Temperature 36.6 C (97.8 F) 01/24/2025 11:04 AM CDT Respiratory Rate 18 01/24/2025 11:04 AM CDT Oxygen Saturation 98% 01/24/2025 11:04 AM CDT Inhaled Oxygen Concentration - - Weight 87.1 kg (192 lb) 01/24/2025 8:31 AM CDT Height 175.3 cm (5' 9) 01/24/2025 8:31 AM CDT Body Mass Index 28.35 01/24/2025 8:31 AM CDT Plan of Treatment Health Maintenance Due Date Last Done Comments Hepatitis C 1963 DTaP, Tdap and Td Vaccines ( 1 - Tdap) 1965 Pneumococcal Vaccine: 50+ Years (1 of 1 - PCV) 1996 Zoster Vaccines (1 of 2) 1996 Annual Medicare Wellness Visit 2011 RSV Immunization or 60+ Years (1 - 1-dose 75+ series) 2021 COVID-19 Vaccine (3 - 2024-2 6 season) 2025 10/23/2020, 09/25/2020 Influenza Adult (#1) 2025 06/07/2020 Meningococcal B Vaccine Aged Out No l onger eligible based on patient's age to complete this topic Meningococcal Vaccine Aged Out No starr john eligible based on patient's age to complete this topic RSV Immunizations Under 20 Months Aged Out No longer eligible b ased on patient's age to complete this topic Insurance [employer] MEDICARE MEDICARE Care Teams Laundry Pricing Clerk Relationship Specialty Start Date End Date Yury Littlejohn MD [address] [place] [id number] PCP - General FAMILY PRACTICE 03/19/21
--- NOTE | 2025-05-25 10:23 | WPDANESEPPF ---
Anes - Initial Pre Proc Eval Procedure: Operation Date: 05/25/25 12:00 Proposed Procedures p Right Shoulder Arthroscopic Rotator Cuff Repair, Subacromial Decompression, Bicep Tenotomy - Crispin Mejia MD Date/Time: 05/25/25 10:23 Surgeon: Crispin Mejia MD Pre Op Diagnosis: right shoulder complete rotator cuff tear Patient Data Age: 79 Gender: M Height: 1.78 m Weight: 86.2 kg Allergies Allergy/AdvReac Type Severity Reaction Status Date / Time No Known Allergies Allergy Verified 05/25/25 12:12 Home Medications ?Medication ?Instructions ?Recorded ?Confirmed ?Type lisinopril 5 mg tablet 5 mg PO DAILY 03/01/21 05/18/25 History aspirin 81 mg capsule 81 mg PO DAILY 06/15/21 05/18/25 History rosuvastatin 20 mg tablet 20 mg PO DAILY 10/24/24 05/18/25 History meloxicam 15 mg tablet 15 mg PO DAILY #90 tabs 01/16/25 05/18/25 Rx hydrocodone 5 mg-acetaminophen 325 1 - 2 tablet PO Q4-6H PRN pain 7 05/25/25 Rx mg tablet days #30 tabs Patient hx anesthesia problems: none Family hx anesthesia problems: none Results Review: All pre-operative results and documents have been reviewed as part of the pre-operative evaluation. [facility] Past Medical History Medical History PONV (postoperative nausea and vomiting) Essential hypertension Surgical History Surgical History History of repair of left rotator cuff (~06/17/21) w/Biceps Tenodesis; Subacromial Decompression History of cataract extraction (~2003) History of right knee surgery (~1969) History of appendectomy (~1964) Social History Social History Smoking status: Never smoker Second hand tobacco smoke exposure: No Alcohol intake: never Substance use: never Substance use type: does not use Living arrangements: with family Spiritual care concerns: No Anes - Eval Final PreProcedure Day of Procedure 05/25/25 10:23 Patient weight: overweight Heart: regular rate and rhythm Lungs: clear to auscultation Airway: Mallampati scale class II Neurological: alert and oriented Last oral intake: >/= 8 hours ASA classification: II Emergent: no Anesthetic plan: proceed Anesthesia type and monitoring: general ETT and standard monitoring Results Review: All pre-operative results and documents have been reviewed as part of the pre-operative evaluation. Informed Consent: The patient's anesthetic plan and its attendant risks and benefits were discussed with the patient/family/POA. Questions were solicited and answers provided to the satisfaction of the patient/family/POA.
--- NOTE | 2025-05-25 10:32 | WPDANESPNB ---
Anes - Peripheral Nerve Block Date/Time: 05/25/25 10:32 I have discussed with the patient/family/POA the placement of a peripheral nerve block for post-operative pain management, including associated risks, benefits, complications, and side effects. Alternative methods of post-operative analgesia were detailed. Questions were solicited and answers provided to the satisfaction of the patient/family/POA. Time-Out: A pre-procedural Time-Out was completed immediately before starting the procedure and confirmed: Patient Identification, Site, Procedure, Patient Position and the Availability of Requisite Equipment. Clinical Indications: Acute post-operative pain management requested by the operative surgeon. Nerve Block Insertion Note Anes-nerve block: interscalene right Patient position: supine Skin prep: chlorhexidine Needle: 22 gauge, stimulating, insulated echogenic needle. Needle length: 50 mm Technique: ultrasound Injectate: bupivacaine 0.5% with epi 5 mcg/ml (20cc- no epi) Observations: tolerated well Complications: none Procedure start time:: 1207 Procedure end time:: 1210
[2025-05-25] MEDS: KETOROLAC 15 MG/ML VIAL (*BKC) IV PUSH (11:05)
[2025-05-25] MEDS: ACETAMINOPHEN 500 MG TABLET 1000 MG PO (11:05)
[2025-05-25] MEDS: ceFAZolin 2 GM in SODIUM CHLORIDE 0.9% IV 50 ML 100 ML IVPB (11:58)
--- NOTE | 2025-05-25 12:06 | WPDHPUPDATE1 ---
History and Physical Update Update Date/Time: 05/25/25 12:06 History and Physical has been reviewed, including an updated exam of the patient. There are NO changes in the patient's condition. Risks, benefits, and alternatives have been discussed and questions answered. Patient agrees to proceed with procedure.
[2025-05-25] MEDS: LACTATED RINGERS 1,000 ML 30 ML IV CONT ×3 (13:47→15:30)
--- NOTE | 2025-05-25 14:05 | W.PM.PROC2 ---
Procedure Note - Detailed Date of Procedure 05/25/25 Pre-op Diagnosis 1. Right shoulder complete rotator cuff tear 2. Subacromial impingement 3. Biceps tendinopathy Post-op Diagnosis Same Procedure Performed Right shoulder 1. Arthroscopic rotator cuff repair 2. Arthroscopic subacromial decompression 3. Arthroscopic biceps tenodesis Surgeon Crispin Mejia MD Financial Operations Consultant Mariza Chadwick PA-C Anesthesia General and Regional ( interscalene block) Findings Medium full thickness tear. Minimal retraction, but some tissues remaining on the posterolateral footprint. Biceps tendinopathy. Minimal partial splitting of the subscapularis did not require repair. 2 tunnel rip stop repair of the supraspinatus, and the anterior 2 sutures were also passed trough the adjacent biceps for tenodesis. The biceps was supsequently released from the superior labrum. Description of Procedure Preoperative antibiotics were given. An interscalene block was administered in the preoperative area. The patient was bought brought to the operating room. A general anesthetic was administered. The patient was carefully positioned in the beach chair position. The head and neck were carefully positioned. The non operative extremity was also carefully positioned. The shoulder was prepped and draped in the usual sterile fashion. Examination was performed. Standard posterior and anterior arthroscopic portals were established. Inflow achieved with the arthroscopic pump using saline and epinephrine. The glenohumeral joint was carefully inspected. There was a medium supraspinatus tear, biceps tendinosis and minimal splitting of the subscapularis; no arthritis present. Attention was turned to the subacromial space. A complete bursectomy was performed. The tear configuration was carefully assessed. The acromion was prominent and showed evidence of impingement. The soft tissues were removed with RF wand, and the acromioplasty performed with the arthroscopic bur. At this point, 2 tunnels were created at the rotator cuff. Three sutures were passed through each tunnel. All sutures were then passed through the cuff tissue. The anterior two sutures were also first passed through the biceps tendon. The sutures were tied arthroscopically. The biceps was released from the superior labrum. The arthroscopic instruments were removed. The wounds were closed with 3-0 Monocryl subcuticular suture and steri strips. There were no complications. A sling was applied and the patient brought to the recovery room. Physician client services assistant, Mariza Chadwick PA-C, required for surgery; including patient positioning, draping, arthroscopic camera operation, maintaining instrument position, suture retrieval, wound closure, and dressing and sling placement. Estimated Blood Loss 10 Pathology None sent Complications No immediate complications Condition Stable Disposition PACU [facility] Billing Surgery - Charge Forward: Surgery Billing
--- NOTE | 2025-05-25 15:31 | SUR.PHASEII ---
PATIENT STATES HE FEEL LIGHT-HEADED; IVF'S INFUSING. DRINKING WELL.
--- NOTE | 2025-05-25 15:35 | SUR.PHASEII ---
PATIENT IS ASKING IF HE CAN TAKE THE MELAXICAM 1 TABLET IN THE AM INSTEAD OF 1/2 IN THE AM AND 1/2 IN THE PM WAS ORDERED; TAMMY VALENTINE FOR DR. PETERSON CALLED; SHE OKAY'D THIS REGIMEN.
== END 2025-05-25 16:36 | disposition home or self-care (01) ==
PROVIDERS: Visit Provider Orthopaedic Surgery
PROC: (CPT 29805; principal; 2025-05-25 12:00)
DX: M75.121 Complete rotator cuff tear or rupture of right shoulder, not specified as traumatic (principal); M25.811 Other specified joint disorders, right shoulder; G89.18 Other acute postprocedural pain; I10 Essential (primary) hypertension; Z79.82 Long term (current) use of aspirin; Z79.891 Long term (current) use of opiate analgesic; Z98.890 Other specified postprocedural states
CPT/HCPCS: 64415; 29827; 29828; 29826; J0690; A9270; J0166; J1100; J1171; J1885; J2003; J2250; J2371; J2405; J2704; J3010; J7120